=== PATIENT | male | born 1980 | race Caucasian/White ===

== ENCOUNTER 2019-05-05 09:08 | Emergency (ER) | payer OTHER, MEDICAID ==
[2019-05-05] MEDS: OXYCODONE/ACETAMINOPHEN (5/325) TAB PO (09:27)
== END 2019-05-05 10:29 | disposition home or self-care (01) ==
LOC: FTE 10:29
DX: S99.911A Unspecified injury of right ankle, initial encounter (principal); X50.1XXA Overexertion from prolonged static or awkward postures, initial encounter; Y92.9 Unspecified place or not applicable
CPT/HCPCS: 73610; 73610-RT; 73630; 99283-25